=== PATIENT | female | born 1945 ===

== ENCOUNTER 2024-03-13 07:59 | Outpatient (REF) | payer MEDICARE, SELFPAY ==
--- OUTSIDE RECORDS SUMMARY | 2024-03-13 08:49 | XMS_ITS | Clinical Summary ---
Author Organization [facility] Address [address] [place] [address] Care Team Providers Care Senior Receptionist Name Role Phone Nathan Palmer MD Primary Care Provider Allergies Active Allergy Reactions Criticality Noted Date Comments Amlodipine 09/28/2021 Lisinopril 09/28/2021 Meperidine 01/15/2018 pt had very hard time waking up Moxifloxacin 02/15/2021 Medications Medication Sig Dispensed Refills Start Date End Date Status DILT-XR 240 mg 24 hr capsule TAKE 1 CAPSULE BY MOUTH DAILY 90 capsule 3 12/18/2023 Active metoprolol succinate (TOPROL-XL) 25 mg 24 hr tablet TAKE 1 TABLET BY MOUTH EVERY DAY 90 tablet 3 12/18/2023 Active apixaban (Eliquis) 5 mg tablet Take 1 tablet (5 mg total) by mouth 2 (two) times a day. 12/04/2022 Active furosemide (LASIX) 20 mg tablet Take 1 tablet (20 mg total) by mouth 1 (one) time each day. 10/17/2023 Active anastrozole (ARIMIDEX) 1 mg Take 1 tablet (1 mg total) by mouth 1 (one) time each day Active CALCIUM CITRATE-VITAMIN D3 ORAL Take 1 Tablet by mouth daily. Active atorvastatin (LIPITOR) 20 mg tablet Take 20 mg by mouth daily. Active folic acid (FOLVITE) 1 mg tablet Take 1 mg by mouth daily. Active methotrexate (TREXALL) 15 mg tablet Take 15 mg by mouth once a week. 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 Last Assessment & Plan: Moderate aortic stenosis by most recent echocardiogram. No significant LVH but she likely has a component of HFpEF and aortic stenosis causing her shortness of breath. No indication for valve replacement. I will check a BNP to see if she needs a diuretic. Supraventricular tachycardia 03/03/2020 Overview (01/22/2024): Supraventricular tachycardia status post successful ablation in 2007. No recurrence. Last Assessment & Plan: SVT should be resolved with ablation long-term. Transient ischemic attack 03/03/2020 Overview (01/22/2024): Transient cerebral ischemia Paroxysmal atrial fibrillation 05/15/2018 Overview (01/22/2024): Developed atrial fibrillation in 2017. This was associated with a left cerebellar CVA. Implantable loop recorder identified atrial fibrillation. She has a [id number] score of 6. She was initially on sotalol but due to increased persistence and minimal symptoms transition to rate control achieved with diltiazem and metoprolol. started on Eliquis in May 2018. No issues with bleeding. Normal renal function. Last Assessment & Plan: Chronic persistent atrial fibrillation. Currently well rate controlled. Anticoagulated due to an elevated [id number] score. No changes needed although she may trial off of metoprolol due to excessive fatigue. Hypertensive disorder 09/29/2011 Overview (01/22/2024): Hypertension Last Assessment & Plan: Blood pressure appears to be reasonably well-controlled on current medications. We talked about possibly trialing off of metoprolol to see if her excessive fatigue is in part due to the beta-anuj. She will check her heart rate with a [employer] mobile device to make sure that it is under 100 at rest otherwise I will increase the diltiazem. Vasculitis 2010 Overview (01/22/2024): Vasculitis Immunizations Name Administration Dates Next Due Brozengo SARS-CoV-2 COVID-19, mRNA, LNP-S, preservative free 03/30/2020,03/09/2020 Family History Medical History Relation Name Comments Stroke Maternal Grandfather Hypertension Mother Stroke Mother Hypertension Uncle Relation Name Status Comments Maternal Grandfather Mother Uncle Alive Social History Tobacco Use Types Packs/Day Years Used Date Smoking Tobacco: Never Smokeless Tobacco: Never Alcohol Use Standard Drinks/Week Comments No 0 (1 standard drink = 0.6 oz pur e alcohol) Sex and Gender Information Value Date Recorded Sex Assigned at Not on file Gender Identity Not on file Sexual Orientation Not on file Obstetrics History Last Filed Vital Signs Vital Sign Reading Time Taken Comments Blood Pressure 132/72 09/24/2023 9:12 AM EDT Pulse 70 09/24/2023 9:12 AM EDT Temperature - - Respiratory Rate - - Oxygen Saturation - - Inhaled Oxygen Concentration - - Weight 78 kg (172 lb) 09/24/2023 9:12 AM EDT Height 160 cm (5' 3 ) 09/24/2023 9:12 AM EDT Body Mass Index 30.47 09/24/2023 9:12 AM EDT Plan of Treatment Upcoming Encounters Date Type Department Care Team (Late st Contact Info) Description 04/11/2024 10:40 AM EST Office Visit [facility] [address] [facility] [address] [place] [id number] Darcy Corona NP [address] [facility] [address] [place] [address] Health Maintenance Due Date Last Done Comments DTaP,Tdap,and Td Vaccines (1 - Tdap) 08/12/1963 Zoster Vaccines (1 of 2) 08/12/1963 Pneumococcal Vaccine: 65+ Years (2 of 2 - PPSV23 or PCV20) 05/16/2017 03/21/2017 RSV Immunization Patients 60 + Years Old (1 - 1-dose 75+ series) 08/12/2019 COVID-19 Vaccine (3 - Pfizer risk series) 04/27/2020 03/30/2020, 03/09/2020 Depression Screening 01/14/2022 Falls Risk Assessment 01/14/2022 Hepatitis C Screening 01/14/2022 Medicare Annual Wellness Visit 01/14/2022 Osteoporosis Screening (Bone Density Screening) 01/14/2022 Social Influencers of Health Screening 01/14/2022 Hypertension/CHF/CAD Annual BMP Blood Test 01/20/2022 Influenza Vaccine (#1) 2023 0, 12/12/2018 Cholesterol Screening (Lipid Panel) 05/08/2028 05/09/2023 HIB Vaccines Aged Out No longer eligi ble based on patient's age to complete this topic HPV Vaccines Aged Out No longer eligi ble based on patient's age to complete this topic Hepatitis A Vaccines Aged Out No long er eligible based on patient's age to complete this topic Hepatitis B Vaccines Aged Out No long er eligible based on patient's age to complete this topic IPV Vaccines Aged Out No longer eligi ble based on patient's age to complete this topic MMR Vaccines Aged Out No longer eligi ble based on patient's age to complete this topic Meningococcal ACWY Vaccine Aged Out N o longer eligible based on patient's age to complete this topic RSV Immunization Patients Under 20 months Aged Out No longer eligible b ased on patient's age to complete this topic Varicella Vaccines Aged Out No longer eligible based on patient's age to complete this topic Procedures Procedure Name Priority Date/Time Associated Diagnosis Comments LIPID PANEL Routine 05/09/2023 from Last 3 Months or Most Recently Relevant to Health Maintenance Results * Lipid panel (05/09/2023) Triglycerides 69 0 - 149 mg/dL Cholesterol 134 100 - 199 mg/dL HDL 88 39 mg/dL LDL Cholesterol 46 0 - 129 mg/dL Blood Venous blood specimen / Unknown Historical Provider LAB BLOOD ORDERAB LES from Last 3 Months or Most Recently Relevant to Health Maintenance Care Teams Senior Receptionist Relationship Specialty Start Date End Date Nathan Palmer MD [address] [facility] [address] [place], [place] PCP - General 03/28/10
--- OUTSIDE RECORDS SUMMARY | 2024-03-13 08:49 | XMS_ITS | Clinical Summary ---
Author Organization [facility] Address [address] [place] [address] Care Team Providers Care Milk Handler Name Role Phone Nathan Palmer MD Primary Care Provider [phone] Allergies No known active allergies Medications Medication Sig Dispensed Refills Start Date End Date Status folic acid (FOLVITE) tablet 1 mg Take 1 tablet (1 mg total) by mouth daily. 0 Active losartan (COZAAR) tablet 25 mg Take 1 tablet (25 mg total) by mouth daily. 75 mg daily 0 Active atorvastatin (LIPITOR) tablet 20 mg Take 1 tablet (20 mg total) by mouth daily. 0 Active apixaban (ELIQUIS) 5 MG TABS tablet Take by mouth every 12 (twelve) hours. 0 Active methotrexate 2.5 MG tablet Take 1 tablet (2.5 mg total) by mouth 3 (three) times a week. 15 mg weekly 0 Active sotalol (BETAPACE) 80 MG tablet Take 1 tablet (80 mg total) by mouth 2 (two) times a day. 0 Active Glycopyrrolate-Formote rol (Bevespi Aerosphere) 9-4.8 MCG/ACT AERO Inhale into the lungs. 0 Active Calcium Citrate-Vitamin D (CITRACAL + D PO) Take by mouth. 0 Act liza metoprolol succinate (TOPROL-XL) 24 hr tablet 25 mg Take by mouth daily. 0 Active dilTIAZem (CARDIZEM CD) 180 MG 24 hr capsule Take 1 capsule (180 mg total) by mouth daily. 0 Active Active Problems Problem Noted Date Diagnosed Date Malignant neoplasm of overla pping sites of right breast in female, estrogen receptor positive 10/06/2018 Social History Tobacco Use Types Packs/Day Years Used Date Smoking Tobacco: Never Assessed Sex and Gender Information Value Date Recorded Sex Assigned at Not on file Gender Identity Not on file Sexual Orientation Not on file Job Start Date Occupation Industry Not on file Not on file Not on file Last Filed Vital Signs Vital Sign Reading Time Taken Comments Blood Pressure 144/67 12/22/2022 9:46 AM EST Pulse 81 12/22/2022 9:46 AM EST Temperature 37.1 ??C (98.7 ??F) 12/22/2022 9:46 AM ES T Respiratory Rate - - Oxygen Saturation 97% 12/22/2022 9:46 AM EST Inhaled Oxygen Concentration - - Weight 80.7 kg (178 lb) 12/22/2022 9:46 AM EST Height 167.6 cm (5' 6 ) 11/18/2020 10:43 AM EDT Body Mass Index 28.73 11/18/2020 10:43 AM EDT Plan of Treatment Health Maintenance Due Date Last Done Comments Hepatitis C Screening 1944 Depression Screening 1956 Preventative Health Evaluation 1962 DTap / Tdap / Td (1 - Tdap) 08/12/1963 Shingrix-Zoster Vaccine (1 o f 2) 08/12/1963 Fall Risk Assessment 2009 Osteoporosis Screening (DEXA Scan) 2009 RSV Adult > 60+ Yrs or (1 - 1-dose 75+ series) 08/12/2019 COVID-19 Vaccine (3 - Pfizer risk series) 04/27/2020 03/30/2020, 03/09/2020 Influenza Vaccine (#1) 2023 0, 11/19/2013, 01/12/2012 Pneumococcal Vaccine Completed 03/21/2017, 02/05/2013 Hepatitis B Vaccines Aged Out No long er eligible based on patient's age to complete this topic RSV Ped < 20 months Aged Out No longe r eligible based on patient's age to complete this topic Care Teams Milk Handler Relationship Specialty Start Date End Date Nathan Palmer MD [address] [facility] [address] [facility] [address] [place] [address] PCP - General Internal Medicine 10/01/18
[2024-03-13 11:30] LABS: Influenza A PCR POSITIVE (Negative); Influenza B PCR NEGATIVE (Negative); Resp Syncy Virus RNA Qual PCR NEGATIVE (Negative); SARS COV2 PCR INHOUSE NEGATIVE (Negative)
== END 2024-03-13 08:00 | disposition home or self-care (01) ==
LOC: HO.LAB 07:59
PROVIDERS: Visit Provider Nurse Practitioner Family
DX: J06.9 Acute upper respiratory infection, unspecified (principal); R05.1 Acute cough
CPT/HCPCS: 0241U; 99212